=== PATIENT | male | born 1955 | race Hispanic/Latino ===

== ENCOUNTER → 2017-07-14 | Outpatient (CLI) | payer BC | END | disposition home or self-care (01) | LOC: SHCH 12:57 | PROVIDERS: ATTEND Internal Medicine Cardiovascular Disease | DX: R07.9 Chest pain, unspecified (principal); R00.0 Tachycardia, unspecified | CPT/HCPCS: 93306 ==

== ENCOUNTER → 2020-10-18 | Outpatient (CLI) | payer OTHER | END | disposition home or self-care (01) | LOC: OIH 08:03 | PROVIDERS: ATTEND Family Medicine | DX: I10 Essential (primary) hypertension (principal) | CPT/HCPCS: 71046 ==

== ENCOUNTER → 2020-11-14 | Outpatient (CLI) | payer OTHER | END | disposition home or self-care (01) | LOC: RAH 08:21 | PROVIDERS: ATTEND Family Medicine | DX: S43.422A Sprain of left rotator cuff capsule, initial encounter (principal); X58.XXXA Exposure to other specified factors, initial encounter; Y93.89 Activity, other specified; Y92.89 Other specified places as the place of occurrence of the external cause; Y99.8 Other external cause status | CPT/HCPCS: 73030 ==

== ENCOUNTER → 2022-06-06 | Outpatient (CLI) | payer OTHER | END | disposition home or self-care (01) | LOC: RAH 10:06 | PROVIDERS: ATTEND Family Medicine | DX: J44.9 Chronic obstructive pulmonary disease, unspecified (principal) | CPT/HCPCS: 71046 ==

== ENCOUNTER → 2022-07-25 | Outpatient (CLI) | payer OTHER | END | disposition home or self-care (01) | LOC: RAH 09:37 | PROVIDERS: ATTEND Family Medicine | DX: N20.0 Calculus of kidney (principal) | CPT/HCPCS: 76770 ==

== ENCOUNTER 2022-12-05 10:25 | Emergency (ER) | payer OTHER ==
[~2022-12-05] VITALS: Ht 185.4 cm; Wt 99.8 kg
[~2022-12-05 10:25] MED LIST: MECL-226 PO; SULF1TAB42 PO
[2022-12-05 10:29] VITALS: BP 146/100
[2022-12-05] MEDS ORDERED: TETANUS/DIPHTHERIA TOXOID [ADULT] 0.5 ML VIAL IM ONE (11:30)
[2022-12-05] MEDS ORDERED: LIDOCAINE HCL 1% 20 ML VIAL INJ SCH (11:30)
[2022-12-05] MEDS ORDERED: TRAM50TA4 PO (12:53)
[2022-12-05] MEDS ORDERED: AMOX1TAB16 PO (12:53)
== END 2022-12-05 14:12 | disposition home or self-care (01) ==
LOC: EDH 10:25
DX: S62.633A Displaced fracture of distal phalanx of left middle finger, initial encounter for closed fracture (principal); S61.213A Laceration without foreign body of left middle finger without damage to nail, initial encounter; I10 Essential (primary) hypertension; E11.9 Type 2 diabetes mellitus without complications; E78.00 Pure hypercholesterolemia, unspecified; Z87.442 Personal history of urinary calculi; Z79.899 Other long term (current) drug therapy; Z98.890 Other specified postprocedural states; X58.XXXA Exposure to other specified factors, initial encounter; Y93.89 Activity, other specified; Y92.89 Other specified places as the place of occurrence of the external cause; Y99.8 Other external cause status
CPT/HCPCS: 12001; 73130; 90471; 90714

== ENCOUNTER → 2024-03-01 | Outpatient (CLI) | payer OTHER ==
[~2024-03-01] MED LIST changes: +AMOX1TAB16 PO; +TRAM50TA4 PO
[2024-03-01] MEDS: REGADENOSON 0.4 MG/5 ML PF SYG IVP ONE (10:47)
== END | disposition home or self-care (01) ==
LOC: SHCH 07:50
PROVIDERS: ATTEND Internal Medicine Cardiovascular Disease
DX: R07.9 Chest pain, unspecified (principal)
CPT/HCPCS: 78452; 93017; J2785; A9500 ×2

== ENCOUNTER 2024-03-26 22:48 | Observation (INO) | payer OTHER ==
[~2024-03-26] VITALS: Ht 188 cm; Wt 98.4 kg
[~2024-03-26 22:48] MED LIST changes: -AMOX1TAB16 PO; -SULF1TAB42 PO
[2024-03-26 23:56] LABS: BASOPHILS # (AUTO) 0.06 K/uL (0.00-0.20); BASOPHILS % (AUTO) 0.6 % (0.0-5.0); EOSINOPHILS # (AUTO) 0.14 K/uL (0.00-0.70); EOSINOPHILS % (AUTO) 1.3 % (0.0-8.0); HEMATOCRIT 44.8 % (42-54); IMMATURE GRANULOCYTE ABSOLUTE 0.07 K/uL (0-1); LYMPHOCYTES # (AUTO) 2.7 K/uL (1.0-4.8); MEAN CORPUSCULAR HEMOGLOBIN 30.7 pg (27.0-33.0); MEAN CORPUSCULAR HGB CONC 34.2 g/dL (32.0-36.0); MONOCYTES # (AUTO) 1.1 K/uL (0.1-1.0); MONOCYTES % (AUTO) 10.1 % (3.0-13.0); NEUTROPHILS # (AUTO) 6.6 K/uL (1.8-7.7); NEUTROPHILS % (AUTO) 62.3 % (40.0-77.0); PLATELET COUNT (AUTO) 192 K/uL (130-400); RED BLOOD CELL COUNT(AUTO) 4.98 MIL/uL (4.50-6.20); WHITE BLOOD COUNT (AUTO) 10.6 K/uL (4.8-10.8)
[2024-03-26 23:59] LABS: APPEARANCE,URINE CLOUDY (CLEAR); BILIRUBIN,URINE NEGATIVE (NEGATIVE); COLOR,URINE YELLOW (YELLOW); GLUCOSE, URINE (UA) NEGATIVE (NEGATIVE); KETONES,URINE 5 mg/dL (NEGATIVE); LEUKOCYTE ESTERASE ,URINE NEGATIVE Leu/uL (NEGATIVE); NITRATE,URINE NEGATIVE (NEGATIVE); OCCULT BLOOD,URINE SMALL (NEGATIVE); PH,URINE 5.5 (5.0-8.0); PROTEIN,URINE 100 mg/dL (NEGATIVE)
[2024-03-27 00:07] LABS: ADD UA MICROSCOPIC YES
[2024-03-27 00:09] LABS: MUCUS,URINE RARE LPF (None Seen); SQUAMOUS EPITHELIAL CELL,UR RARE /HPF (0-2)
[2024-03-27 00:12] LABS: CREATININE 2.7 mg/dL (0.5-1.3); POTASSIUM 4.3 mmol/L (3.5-5.1)
[2024-03-27 00:17] LABS: MAGNESIUM 2.3 mg/dL (1.80-2.40)
[2024-03-27] MEDS ORDERED: hydrALAZine 20MG/ML VIAL IV PRN (02:00)
[2024-03-27] MEDS ORDERED: LACTULOSE 20 GM/30 ML UDCUP PO PRN (02:00)
[2024-03-27] MEDS ORDERED: ondanSETRON 4MG INJ IVP PRN (02:00)
[2024-03-27] MEDS ORDERED: hydroMORPHone 1 MG INJ IVP PRN (02:00)
[2024-03-27] MEDS ORDERED: acetaMINOPHEN 325 MG TAB PO PRN (02:00)
[2024-03-27] MEDS ORDERED: LAbetaLOL 20MG SYG IV PRN (02:00)
[2024-03-27] MEDS ORDERED: acetaMINOPHEN 650 MG SUPPOSITORY RC PRN (02:00)
[2024-03-27] MEDS: ZOSYN 3.375GM +NS 50ML IV SCH (02:49)
[2024-03-27] MEDS: 0.9%NACL 1000ML 1,000 ML IV ONE (02:50)
[2024-03-27] MEDS: HYDROcodone/APAP 5/325 1 TAB TABLET PO PRN (02:50)
[2024-03-27 04:40] VITALS: BP 115/75; PULSE 71; RESP 20; TEMP 97.9
[2024-03-27] MEDS: LACTATED RINGERS 1000ML 1,000 ML IV SCH (05:04)
[2024-03-27] MEDS: INSULIN humuLIN R 100 UNIT/ML 3ML SQ SCH (05:36)
[2024-03-27 08:00] VITALS: BP 107/63; PULSE 66; RESP 19; TEMP 98.2
[2024-03-27 10:08] LABS: HEMATOCRIT 40.1 % (42-54); MEAN CORPUSCULAR HEMOGLOBIN 31.2 pg (27.0-33.0); MEAN CORPUSCULAR HGB CONC 33.7 g/dL (32.0-36.0); MEAN CORPUSCULAR VOLUME 92.6 fL (79-99); RED BLOOD CELL COUNT(AUTO) 4.33 MIL/uL (4.50-6.20); RED CELL DISTRIBUTION WIDTH 12.9 % (11.0-15.5); WHITE BLOOD COUNT (AUTO) 7.1 K/uL (4.8-10.8)
[2024-03-27 10:23] LABS: CREATININE 2.1 mg/dL (0.5-1.3); POTASSIUM 3.7 mmol/L (3.5-5.1)
[2024-03-27] MEDS: PANTOPrazole 40 MG TAB DR PO SCH (11:27)
[2024-03-27] MEDS: polyETHYLene GLYCol 3350 17 GM POWD.PACK PO SCH (11:27)
[2024-03-27 12:00] VITALS: BP 117/61; PULSE 87; RESP 19; TEMP 97.8
[2024-03-27] MEDS ORDERED: hydroMORPHone 0.5 MG SYG (0.5MG/0.5ML) IVP PRN ×2 (13:30→19:30)
[2024-03-27 16:00] VITALS: BP 107/70; PULSE 84; RESP 19; TEMP 97.6
[2024-03-27 20:00] VITALS: BP 100/63; PULSE 71; RESP 20; TEMP 98
[2024-03-28] VITALS: BP 132/80; PULSE 71; RESP 19; TEMP 97.6
[2024-03-28 04:00] VITALS: BP 109/65; PULSE 71; RESP 18; TEMP 98.2
[2024-03-28 04:03] VITALS: BP 116/71; PULSE 71; RESP 20; TEMP 98
[2024-03-28 04:06] VITALS: BP 106/64; PULSE 76; RESP 20; TEMP 97.6
[2024-03-28 04:44] LABS: BASOPHILS # (AUTO) 0.05 K/uL (0.00-0.20); BASOPHILS % (AUTO) 0.7 % (0.0-5.0); EOSINOPHILS # (AUTO) 0.21 K/uL (0.00-0.70); IMMATURE GRANULOCYTE ABSOLUTE 0.05 K/uL (0-1); LYMPHOCYTES # (AUTO) 2.5 K/uL (1.0-4.8); LYMPHOCYTES % (AUTO) 35.7 % (21.0-51.0); MEAN CORPUSCULAR HEMOGLOBIN 30.8 pg (27.0-33.0); MEAN CORPUSCULAR HGB CONC 33.9 g/dL (32.0-36.0); MEAN CORPUSCULAR VOLUME 90.9 fL (79-99); MONOCYTES # (AUTO) 0.6 K/uL (0.1-1.0); MONOCYTES % (AUTO) 9.1 % (3.0-13.0); NEUTROPHILS # (AUTO) 3.5 K/uL (1.8-7.7); NEUTROPHILS % (AUTO) 50.8 % (40.0-77.0); PLATELET COUNT (AUTO) 147 K/uL (130-400); RED BLOOD CELL COUNT(AUTO) 3.96 MIL/uL (4.50-6.20); RED CELL DISTRIBUTION WIDTH 12.9 % (11.0-15.5); WHITE BLOOD COUNT (AUTO) 6.9 K/uL (4.8-10.8)
[2024-03-28 05:12] LABS: BILIRUBIN,TOTAL 0.6 mg/dL (0.2-1.0); CREATININE 1.6 mg/dL (0.5-1.3); MAGNESIUM 1.7 mg/dL (1.80-2.40); PHOSPHORUS 2.4 mg/dL (2.5-4.9); POTASSIUM 4.1 mmol/L (3.5-5.1); TOTAL PROTEIN, SERUM 6.3 g/dL (6.0-8.3)
[2024-03-28 08:30] VITALS: O2SAT 98
[2024-03-28] MEDS: MAGNESIUM 2GM PREMIX 50ML 50 ML IV ONE (09:13)
[2024-03-28] MEDS: MAGNESIUM 2GM PREMIX 50ML 50 ML IV PRN (09:15)
[2024-03-28] MEDS: ENOXAPARIN SODIUM 30 MG/0.3 ML SQ SCH (09:16)
[2024-03-28 12:00] VITALS: BP 132/76; PULSE 71; RESP 18; TEMP 98.5
== END 2024-03-28 15:35 | disposition home or self-care (01) ==
LOC: EDH 22:48 → EDHIP 03-27 01:49 → 4BH 03-27 03:56
PROVIDERS: ADMIT Internal Medicine Critical Care Medicine; ATTEND Internal Medicine Critical Care Medicine
DX: N17.9 Acute kidney failure, unspecified (principal); E87.1 Hypo-osmolality and hyponatremia; I11.9 Hypertensive heart disease without heart failure; E78.5 Hyperlipidemia, unspecified; E86.0 Dehydration; E11.9 Type 2 diabetes mellitus without complications; G89.29 Other chronic pain; M54.9 Dorsalgia, unspecified; E87.8 Other disorders of electrolyte and fluid balance, not elsewhere classified; I48.91 Unspecified atrial fibrillation; F12.90 Cannabis use, unspecified, uncomplicated; Z79.899 Other long term (current) drug therapy
CPT/HCPCS: 82550 ×2; 83735 ×2; 84484; 80048 ×2; 85025 ×2; 36415 ×3; 71045; 93005; 96365; 96366 ×2; 99285; 85027; 87086; 82948 ×6; 81001; 76770; 96376; 96372; 96367; 84100; 80053; 84145; G0378 ×38; J7030; J2543 ×3; J3475; J1650